=== PATIENT | female | born 1935 | race Caucasian/White ===

== ENCOUNTER → 2018-07-12 13:37 | Outpatient (CLI) | payer MEDICARE | END | disposition home or self-care (01) | LOC: D.MRI 13:30 | DX: M54.2 Cervicalgia (principal); M79.601 Pain in right arm; R51 Headache ==

== ENCOUNTER → 2020-01-11 10:52 | Outpatient (CLI) | payer MEDICARE | END | disposition home or self-care (01) | LOC: D.NM 10:30 | PROVIDERS: ATTEND Specialist | DX: M54.9 Dorsalgia, unspecified (principal) ==